=== PATIENT | female | born 1965 | race Two or more races ===

== ENCOUNTER 2023-02-14 11:59 | Emergency (ER) | payer OTHER ==
[~2023-02-14] VITALS: Ht 165.1 cm; Wt 54.4 kg
[2023-02-14] MEDS ORDERED: ATIVAN2 M1 PO (13:03)
[2023-02-14] MEDS ORDERED: MIRTAZAPINE30 MG PO (13:04)
[2023-02-14] MEDS ORDERED: RESTORIL30 MG PO (13:04)
== END 2023-02-14 13:47 | disposition home or self-care (01) ==
LOC: ER 11:59
DX: L55.9 Sunburn, unspecified (principal); Z88.0 Allergy status to penicillin